=== PATIENT | male | born 2000 | race Caucasian/White ===

== ENCOUNTER 2019-09-15 11:17 | Day surgery (SDC) | payer OTHER ==
[~2019-09-15] VITALS: Ht 172.7 cm; Wt 77.1 kg
[2019-09-15] MEDS ORDERED: ceFAZolin 1GM/50ML 50 ML IV ONE (12:11)
[2019-09-15] MEDS ORDERED: SODIUM CHLORIDE LOCK 10 ML ONE (13:25)
[2019-09-15] MEDS ORDERED: ONDANSETRON HCL 4 MG/2 ML VIAL ONE (13:25)
[2019-09-15] MEDS ORDERED: PROPOFOL 10 MG/ML 20 ML IV ONE (13:25)
[2019-09-15] MEDS ORDERED: fentaNYL CITRATE 100 MCG/2 ML VL ONE (13:25)
[2019-09-15] MEDS ORDERED: MIDAZOLAM HCL 1MG/1ML-2 ML VIAL ONE (13:25)
[2019-09-15] MEDS ORDERED: MEPERIDINE HCL (25 MG/ML) 1ML VIAL ONE (13:25)
[2019-09-15] MEDS ORDERED: fentaNYL CITRATE 100 MCG/2 ML VL IV PRN (14:15)
[2019-09-15] MEDS ORDERED: HYDROmorphone HCL 2 MG/ML VL IV PRN (14:15)
[2019-09-15] MEDS ORDERED: KETOROLAC TROMETH 15 mg/ml 1ML VL IV ONE (14:15)
[2019-09-15] MEDS ORDERED: MORPHINE SULFATE 4 MG/ML SYR/VIAL IV PRN (14:15)
[2019-09-15] MEDS ORDERED: METOCLOPRAMIDE HCL 5MG/ml INJ 2ml VIAL IV PRN (14:15)
[2019-09-15] MEDS ORDERED: ROPIVACAINE 0.5% (5MG/ML) 20ML AMPULE IJ ONE (14:17)
[2019-09-15 16:43] VITALS: BP 126/72
== END 2019-09-15 17:13 | disposition home or self-care (01) ==
LOC: SUR 11:17
PROVIDERS: ATTEND Orthopaedic Surgery
DX: S83.281A Other tear of lateral meniscus, current injury, right knee, initial encounter (principal); X58.XXXA Exposure to other specified factors, initial encounter; Y93.89 Activity, other specified; Y92.89 Other specified places as the place of occurrence of the external cause; Y99.8 Other external cause status
CPT/HCPCS: 29881; C1713; J0690; J1170; J2175; J2250; J2405; J2704; J3010